=== PATIENT | male | born 1960 | race American Indian/Alaskan Native ===

== ENCOUNTER 2017-02-23 08:48 | Emergency (ER) | payer OTHER ==
--- NOTE | 2017-02-23 09:17 | EDM.PDOC ---
ED HPI GENERAL MEDICAL PROBLEM - General Chief Complaint: Respiratory Problem Stated Complaint: COUGH, PHELM, SICK, X 10 DAYS Time Seen by Provider: 02/23/17 09:16 Source of Information: Reports: Patient History Limitations: Reports: No Limitations - History of Present Illness INITIAL COMMENTS - FREE TEXT/NARRATIVE: 56 yo white male c/o cough and malaise X 1 week. 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 Pt. denies fever or chills Onset Date: 02/19/17 Onset Time: 08:00 Duration: Day(s): Location: Reports: Chest, Generalized Severity: Moderate Improves with: Reports: None Worsens with: Reports: None Associated Symptoms: Reports: cough w sputum (yellow-green), Malaise - Related Data Allergies Allergy/AdvReac Type Severity Reaction Status Date / Time No Known Allergies Allergy Verified 02/23/17 09:09 Home Meds: Home Meds . [No Known Home Meds] 02/23/17 [History] Past Medical History - Past Health History Medical/Surgical History: Denies Medical/Surgical History Social & Family History - Tobacco Use Smoking Status *Q: Never Smoker - Caffeine Use Caffeine Use: Reports: Coffee, Tea - Recreational Drug Use Recreational Drug Use: Yes Recreational Drug Type: Reports: Marijuana/Hashish Other Recreational Drug Type: last time pot was used 3 weeks ago ED ROS GENERAL - Review of Systems Review Of Systems: See Below Constitutional: Reports: Malaise HEENT: Reports: No Symptoms Respiratory: Reports: Cough, Sputum (yellow-green) Cardiovascular: Reports: No Symptoms Endocrine: Reports: Fatigue GI/Abdominal: Reports: Nausea : Reports: No Symptoms Musculoskeletal: Reports: No Symptoms Skin: Reports: No Symptoms Neurological: Reports: No Symptoms Psychiatric: Reports: No Symptoms Hematologic/Lymphatic: Reports: No Symptoms Immunologic: Reports: No Symptoms ED EXAM, GENERAL - Physical Exam Exam: See Below Exam Limited By: No Limitations General Appearance: Alert, WD/WN, Obese Eye Exam: Bilateral Eye: EOMI, PERRL Ears: Normal External Exam Nose: Normal Inspection Throat/Mouth: Normal Inspection Head: Atraumatic, Normocephalic Neck: Normal Inspection, Supple Respiratory/Chest: No Respiratory Distress, Rhonchi (bilateral) Cardiovascular: Normal Peripheral Pulses, Regular Rate, Rhythm GI/Abdominal: Normal Bowel Sounds, Soft, Non-Tender (Male) Exam: No Hernia Back Exam: Normal Inspection, Full Range of Motion Extremities: Normal Inspection, Normal Range of Motion Neurological: Alert, Oriented, CN II-XII Intact Psychiatric: Normal Affect, Normal Mood Skin Exam: Warm, Dry, Intact Lymphatic: No Adenopathy Course - Vital Signs Last Recorded V/S: Last Vital Signs Temp 36.8 C 02/23/17 09:03 Pulse 130 H 02/23/17 09:03 Resp 20 02/23/17 09:03 BP 176/99 H 02/23/17 09:03 Pulse Ox 94 L 02/23/17 09:03 - Orders/Labs/Meds Orders: Active Orders 24 hr Category Date Time Status RT Aerosol Therapy [RC] ASDIRECTED Care 02/23/17 09:56 Ordered CULTURE SPUTUM + SMEAR [RM] Stat Lab 02/23/17 09:56 Uncollected Labs: Laboratory Tests 02/23/17 Range/Units 09:28 WBC 15.4 H (5.0-10.0) 10^3/uL RBC 5.00 (4.6-6.2) 10^6/uL Hgb 15.5 (14.0-18.0) g/dL Hct 45.6 (40.0-54.0) % MCV 91.2 (80-100) fL MCH 31.0 (27.0-34.0) pg MCHC 34.0 (33.0-35.0) g/dL Plt Count 319 (150-450) 10^3/uL Neut % (Auto) 76.4 H (42.2-75.2) % Lymph % (Auto) 10.0 L (20.5-50.1) % [place] % (Auto) 12.4 H (2-8) % Eos % (Auto) 0.9 L (1.0-3.0) % Baso % (Auto) 0.3 (0.0-1.0) % Meds: Medications Discontinued Medications Generic Name Dose Route Start Last Admin Trade Name Freq PRN Reason Stop Dose Admin Albuterol/Ipratropium 3 ml 02/23/17 09:55 Duoneb 3.0-0.5 Mg/3 Ml NEB 02/23/17 09:56 ONETIME ONE Ceftriaxone Sodium 1 gm/ 0 gm 02/23/17 10:09 Lidocaine HCl 2.1 ml IM 02/23/17 10:10 ONETIME ONE Departure - Departure Time of Disposition: 10:12 Disposition: Home, Self-Care 01 Condition: Good Clinical Impression: Pneumonia Qualifiers: Pneumonia type: due to unspecified organism Laterality: left Lung location: lower lobe of lung Qualified Code(s): J18.1 - Lobar pneumonia, unspecified organism - Discharge Information Instructions: Community-Acquired Pneumonia, Adult, [id number] Forms: ED Department Discharge Additional Instructions: Always wear mask when working at [employer] Take the medication as prescribed and complete: ZITHROMAX PACK #1 MUCINEX 600mg BID # 30 COMBIVENT MDI 2 puffs Q 4 hours as needed Increase intake if WATER / JUICE F/U w/ PCP in one week for re-check - My Orders Last 24 Hours: My Active Orders 02/23/17 09:56 RT Aerosol Therapy [RC] ASDIRECTED CULTURE SPUTUM + SMEAR [RM] Stat - Assessment/Plan Last 24 Hours: My Active Orders 02/23/17 09:56 RT Aerosol Therapy [RC] ASDIRECTED CULTURE SPUTUM + SMEAR [RM] Stat
[2017-02-23] MEDS ORDERED: Albuterol/Ipratropium 3.0-0.5 MG/3 ML Neb Soln NEB ONE (09:55)
[2017-02-23] MEDS ORDERED: cefTRIAXone 1 GM, Lidocaine 1% 2.1 ML IM ONE ×2 (10:09)
[2017-02-23 10:59] VITALS: BP 144/96
== END 2017-02-23 10:47 | disposition home or self-care (01) ==
LOC: DL.ED 08:48
DX: J18.9 Pneumonia, unspecified organism (principal)
CPT/HCPCS: 36415; 71020; 85025; 87070; 87205; 94640; 96372; 99283; J0696; 87186

== ENCOUNTER 2019-07-23 12:39 | Emergency (ER) | payer OTHER ==
[2019-07-23 13:04] VITALS: BP 165/98; PULSE 88
[2019-07-23] MEDS ORDERED: Ondansetron 4 MG Tab.DIS PO ONE (13:59)
--- NOTE | 2019-07-23 14:23 | EDM.PDOC ---
Scribed by Batool Russell 07/23/19 1422 for Nelly Palmer NP ED HPI GENERAL MEDICAL PROBLEM - General Chief Complaint: Abdominal Pain Stated Complaint: LOWER ABDOMINAL PAIN Time Seen by Provider: 07/23/19 13:26 Source of Information: Reports: Patient, RN, RN Notes Reviewed History Limitations: Reports: No Limitations - History of Present Illness INITIAL COMMENTS - FREE TEXT/NARRATIVE: A 58-year-old male presents with complaint of abdominal discomfort x1 day. Patient reports eating breakfast one day ago and started having abdominal pain with nausea and vomiting. He reports vomiting just bile. He reports generalized abdominal pain after vomiting. Denies bloody emesis, diarrhea. He smokes marijuana to help relax at night. No abdominal discomfort in the ER, only nausea. - Related Data Allergies Allergy/AdvReac Type Severity Reaction Status Date / Time No Known Allergies Allergy Verified 02/23/17 09:09 Home Meds: Home Meds . [No Known Home Meds] 02/23/17 [History] Past Medical History - Past Health History Medical/Surgical History: Denies Medical/Surgical History HEENT History: Reports: None Cardiovascular History: Reports: None Respiratory History: Reports: None Other Respiratory History: Pneumonia 2019 Neurological History: Reports: None Psychiatric History: Reports: None Endocrine/Metabolic History: Reports: None Hematologic History: Reports: None Immunologic History: Reports: None Oncologic (Cancer) History: Reports: None Dermatologic History: Reports: None - Past Surgical History Head Surgeries/Procedures: Reports: None HEENT Surgical History: Reports: None Cardiovascular Surgical History: Reports: None GI Surgical History: Reports: None Endocrine Surgical History: Reports: None Musculoskeletal Surgical History: Reports: None Social & Family History - Tobacco Use Smoking Status *Q: Never Smoker Second Hand Smoke Exposure: No - Caffeine Use Caffeine Use: Reports: Tea - Recreational Drug Use Recreational Drug Use: Yes Drug Use in Last 12 Months: Yes Recreational Drug Type: Reports: Marijuana/Hashish Recreational Drug Use Frequency: Daily ED ROS GENERAL - Review of Systems Review Of Systems: Comprehensive ROS is negative, except as noted in HPI. ED EXAM, GI/ABD - Physical Exam Exam: See Below Exam Limited By: No Limitations General Appearance: Alert, WD/WN, No Apparent Distress Head: Atraumatic, Normocephalic Neck: Normal Inspection, Supple, Non-Tender, Full Range of Motion Respiratory/Chest: No Respiratory Distress, Lungs Clear, Normal Breath Sounds, No Accessory Muscle Use, Chest Non-Tender Cardiovascular: Normal Peripheral Pulses, Regular Rate, Rhythm, No Edema, No Gallop, No JVD, No Murmur, No Rub GI/Abdominal Exam: Normal Bowel Sounds, Soft, Non-Tender, No Organomegaly, No Distention, No Abnormal Bruit, No Mass, Pelvis Stable (Male) Exam: Deferred Rectal (Males) Exam: Deferred Back Exam: Normal Inspection, Full Range of Motion, NT Extremities: Normal Inspection, Normal Range of Motion, Non-Tender, Normal Capillary Refill, No Pedal Edema Neurological: Alert, Oriented, CN II-XII Intact, Normal Cognition, Normal Gait, Normal Reflexes, No Motor/Sensory Deficits Psychiatric: Normal Affect, Normal Mood Skin Exam: Warm, Dry, Intact, Normal Color, No Rash Lymphatic: No Adenopathy Course - Vital Signs Last Recorded V/S: Last Vital Signs Temp 97.4 F 07/23/19 12:52 Pulse 88 07/23/19 12:52 Resp 18 07/23/19 12:52 BP 165/98 H 07/23/19 12:52 Pulse Ox 97 07/23/19 12:52 - Orders/Labs/Meds Meds: Medications Discontinued Medications Generic Name Dose Route Start Last Admin Trade Name Saira PRN Reason Stop Dose Admin Ondansetron HCl 4 mg 07/23/19 13:59 07/23/19 14:03 Zofran Odt PO 07/23/19 14:00 4 mg ONETIME ONE Administration - Re-Assessments/Exams Free Text/Narrative Re-Assessment/Exam: 07/23/19 14:17 Reviewed exam findings with patient. Zofran ODT prescribed. Strongly encouraged to discontinue marijuana. Advised food as tolerated. Follow up with PCP in clinic. Departure - Departure Time of Disposition: 13:49 Disposition: Home, Self-Care 01 Condition: Good Clinical Impression: Nausea, Marijuana smoker - Discharge Information Instructions: Nausea, Adult, [id number] Forms: ED Department Discharge Additional Instructions: RX: Zofran 4mg. Push fluids, advance diet as tolerated. Follow up in PCP in 2 to 3 days. Sepsis Event Note - Evaluation Sepsis Screening Result: No Definite Risk - Focused Exam Vital Signs: Vital Signs Temp Pulse Resp BP Pulse Ox 07/23/19 12:52 97.4 F 88 18 165/98 H 97 Date Exam was Performed: 07/23/19 Time Exam was Performed: 14:21 I have read and agree with the documentation that has been completed regarding this visit. By signing this record, I attest that the documentation was completed in my physical presence and is an accurate record of the encounter.
== END 2019-07-23 14:20 | disposition home or self-care (01) ==
LOC: DL.ED 12:39
DX: R11.2 Nausea with vomiting, unspecified (principal); F12.90 Cannabis use, unspecified, uncomplicated
CPT/HCPCS: 99284; A9270; 99283

== ENCOUNTER 2020-07-05 11:38 | Emergency (ER) | payer OTHER ==
[2020-07-05 11:53] VITALS: BP 206/98; PULSE 101
--- NOTE | 2020-07-05 12:21 | EDM.PDOC ---
ED HPI GENERAL MEDICAL PROBLEM - General Chief Complaint: Abdominal Pain Stated Complaint: LEFT ABDOMINAL PAIN, CRAMPING Time Seen by Provider: 07/05/20 12:00 Source of Information: Reports: Patient History Limitations: Reports: No Limitations - History of Present Illness INITIAL COMMENTS - FREE TEXT/NARRATIVE: This 59 yo male patient reports to the ED due to left upper abdominal tenderness/left lower chest pain. The patient reports his symptoms have been intermittent over the past couple of days. The patient has not been able to associate his symptoms with eating or drinking anything. The patient reports he has taken Tylenol and ibuprofen with some symptomatic relief. Duration: Day(s):, Intermittent Location: Reports: Chest (left lower), Abdomen (left upper) Quality: Reports: Ache, Dull Severity: Moderate Improves with: Reports: None Worsens with: Reports: None Context: Reports: Other Associated Symptoms: Reports: No Other Symptoms - Related Data Allergies Allergy/AdvReac Type Severity Reaction Status Date / Time No Known Allergies Allergy Verified 07/05/20 11:54 Home Meds: Home Meds . [No Known Home Meds] 02/23/17 [History] Past Medical History - Past Health History Medical/Surgical History: Denies Medical/Surgical History HEENT History: Reports: None Cardiovascular History: Reports: None Respiratory History: Reports: None Other Respiratory History: Pneumonia 2019 Neurological History: Reports: None Psychiatric History: Reports: None Endocrine/Metabolic History: Reports: None Hematologic History: Reports: None Immunologic History: Reports: None Oncologic (Cancer) History: Reports: None Dermatologic History: Reports: None - Past Surgical History Head Surgeries/Procedures: Reports: None HEENT Surgical History: Reports: None Cardiovascular Surgical History: Reports: None GI Surgical History: Reports: None Endocrine Surgical History: Reports: None Musculoskeletal Surgical History: Reports: None Social & Family History - Tobacco Use Tobacco Use Status *Q: Never Tobacco User Second Hand Smoke Exposure: No - Caffeine Use Caffeine Use: Reports: None - Recreational Drug Use Recreational Drug Use: Yes Recreational Drug Type: Reports: Marijuana/Hashish ED ROS GENERAL - Review of Systems Review Of Systems: Comprehensive ROS is negative, except as noted in HPI. ED EXAM, GI/ABD - Physical Exam Exam: See Below Exam Limited By: No Limitations General Appearance: Alert, WD/WN, Mild Distress, Obese Eyes: Bilateral: Normal Appearance, EOMI Ears: Normal External Exam, Normal Canal, Hearing Grossly Normal, Normal TMs Nose: Normal Inspection, Normal Mucosa, No Blood Throat/Mouth: Normal Inspection, Normal Lips, Normal Teeth, Normal Gums, Normal Oropharynx, Normal Voice, No Airway Compromise Head: Atraumatic, Normocephalic Neck: Normal Inspection, Supple, Non-Tender, Full Range of Motion Respiratory/Chest: No Respiratory Distress, Lungs Clear, Normal Breath Sounds, No Accessory Muscle Use, Chest Non-Tender Cardiovascular: Normal Peripheral Pulses, Regular Rate, Rhythm, No Edema, No G allop, No JVD, No Murmur, No Rub GI/Abdominal Exam: Normal Bowel Sounds, Soft, Non-Tender, No Organomegaly, No Distention, No Abnormal Bruit, No Mass, Pelvis Stable (Male) Exam: Deferred Rectal (Males) Exam: Deferred Back Exam: Normal Inspection, Full Range of Motion, NT Extremities: Normal Inspection, Normal Range of Motion, Non-Tender, Normal Capillary Refill, No Pedal Edema Neurological: Alert, Oriented, CN II-XII Intact, Normal Cognition, Normal Gait, Normal Reflexes, No Motor/Sensory Deficits Psychiatric: Normal Affect, Normal Mood Skin Exam: Warm, Dry, Intact, Normal Color, No Rash Lymphatic: No Adenopathy Course - Vital Signs Last Recorded V/S: Last Vital Signs Temp 36.1 C 07/05/20 11:51 Pulse 101 H 07/05/20 11:51 Resp 22 H 07/05/20 11:51 BP 206/98 H 07/05/20 11:51 Pulse Ox 95 07/05/20 11:51 - Orders/Labs/Meds Orders: Active Orders 24 hr Category Date Time Status EKG Documentation Completion [RC] STAT Care 07/05/20 11:47 Active CULTURE BLOOD [BC] Stat Lab 07/05/20 12:01 Received Labs: Laboratory Tests 07/05/20 07/05/20 07/05/20 Range/Units 12:01 12:01 12:01 WBC 8.5 (5.0-10.0) 10^3/uL RBC 5.07 (4.6-6.2) 10^6/uL Hgb 15.6 (14.0-18.0) g/dL Hct 45.0 (40.0-54.0) % MCV 88.8 (80-100) fL MCH 30.8 (27.0-34.0) pg MCHC 34.7 (33.0-35.0) g/dL Plt Count 210 D (150-450) 10^3/uL Neut % (Auto) 68.8 (42.2-75.2) % Lymph % (Auto) 19.2 L (20.5-50.1) % [place] % (Auto) 10.4 H (2-8) % Eos % (Auto) 1.1 (1.0-3.0) % Baso % (Auto) 0.5 (0.0-1.0) % Sodium 136 (136-145) mmol/L Potassium 4.1 (3.5-5.1) mmol/L Chloride 100 (98-107) mmol/L Carbon Dioxide 23 (21-32) mmol/L Anion Gap 17.1 H (7-13) mEq/L BUN 14 (7-18) mg/dL Creatinine 1.15 (0.70-1.30) mg/dL Est Cr Clr Drug Dosing 67.46 mL/min Estimated GFR (MDRD) > 60 BUN/Creatinine Ratio 12.2 (No establ ref range) Glucose 258 H (74-99) mg/dL Lactic Acid 1.3 (0.4-2.0) mmol/L Calcium 9.5 (8.5-10.1) mg/dL Total Bilirubin 0.8 (0.2-1.0) mg/dL AST 31 (15-37) U/L ALT 57 (16-63) U/L Alkaline Phosphatase 103 (46-116) U/L Troponin I < 0.017 (0.000-0.056) ng/mL Total Protein 8.3 H (6.4-8.2) g/dL Albumin 4.2 (3.4-5.0) g/dL Globulin 4.1 Albumin/Globulin Ratio 1.0 Urine Color (YELLOW) Urine Appearance (CLEAR) Urine pH (5.0-9.0) Ur Specific [place] (1.005-1.030) Urine Protein (NEGATIVE) Urine Glucose (UA) (NEGATIVE) Urine Ketones (NEGATIVE) Urine Occult Blood (NEGATIVE) Urine Nitrite (NEGATIVE) Urine Bilirubin (NEGATIVE) Urine Urobilinogen (0.2-1.0) mg/dL Ur Leukocyte Esterase (NEGATIVE) Urine RBC /HPF Urine WBC (0-5/HPF) /HPF Ur Epithelial Cells (NOT SEEN) /HPF Urine Bacteria (0-FEW/HPF) /HPF Urine Mucus (NOT SEEN) /LPF SARS-CoV-2 RNA (JUAN) (NEGATIVE) 07/05/20 07/05/20 Range/Units 12:47 12:47 WBC (5.0-10.0) 10^3/uL RBC (4.6-6.2) 10^6/uL Hgb (14.0-18.0) g/dL Hct (40.0-54.0) % MCV (80-100) fL MCH (27.0-34.0) pg MCHC (33.0-35.0) g/dL Plt Count (150-450) 10^3/uL Neut % (Auto) (42.2-75.2) % Lymph % (Auto) (20.5-50.1) % [place] % (Auto) (2-8) % Eos % (Auto) (1.0-3.0) % Baso % (Auto) (0.0-1.0) % Sodium (136-145) mmol/L Potassium (3.5-5.1) mmol/L Chloride (98-107) mmol/L Carbon Dioxide (21-32) mmol/L Anion Gap (7-13) mEq/L BUN (7-18) mg/dL Creatinine (0.70-1.30) mg/dL Est Cr Clr Drug Dosing mL/min Estimated GFR (MDRD) BUN/Creatinine Ratio (No establ ref range) Glucose (74-99) mg/dL Lactic Acid (0.4-2.0) mmol/L Calcium (8.5-10.1) mg/dL Total Bilirubin (0.2-1.0) mg/dL AST (15-37) U/L ALT (16-63) U/L Alkaline Phosphatase (46-116) U/L Troponin I (0.000-0.056) ng/mL Total Protein (6.4-8.2) g/dL Albumin (3.4-5.0) g/dL Globulin Albumin/Globulin Ratio Urine Color Dark yellow (YELLOW) Urine Appearance Clear (CLEAR) Urine pH 6.0 (5.0-9.0) Ur Specific [place] 1.025 (1.005-1.030) Urine Protein 30 H (NEGATIVE) Urine Glucose (UA) 500 H (NEGATIVE) Urine Ketones Trace H (NEGATIVE) Urine Occult Blood Negative (NEGATIVE) Urine Nitrite Negative (NEGATIVE) Urine Bilirubin Negative (NEGATIVE) Urine Urobilinogen 0.2 (0.2-1.0) mg/dL Ur Leukocyte Esterase Negative (NEGATIVE) Urine RBC Not seen /HPF Urine WBC Not seen (0-5/HPF) /HPF Ur Epithelial Cells Rare (NOT SEEN) /HPF Urine Bacteria Not seen (0-FEW/HPF) /HPF Urine Mucus Few H (NOT SEEN) /LPF SARS-CoV-2 RNA (JUAN) Negative (NEGATIVE) Departure - Departure Time of Disposition: 13:26 Disposition: Home, Self-Care 01 Condition: Fair Clinical Impression: Hyperglycemia Hypertension Qualifiers: Hypertension type: unspecified Qualified Code(s): I10 - Essential (primary) hypertension Muscle strain of chest wall Qualifiers: Encounter type: initial encounter Qualified Code(s): S29.011A - Strain of muscle and tendon of front wall of thorax, initial encounter - Discharge Information *PRESCRIPTION DRUG MONITORING PROGRAM REVIEWED*: Not Applicable *COPY OF PRESCRIPTION DRUG MONITORING REPORT IN PATIENT JOON: Not Applicable Instructions: Muscle Strain, [id number], Hyperglycemia, [id number]-[id number], Hypertension, Adult, [id number] Forms: ED Department Discharge Care Plan Goals: The patient was advised of the examination, lab, x-ray and EKG results during the visit. The patient was encouraged to follow-up with a primary care facility for further evaluation and treatment. If the patient has any additional symptoms or concerns, the patient should either return to the emergency department or visit his primary care facility. Sepsis Event Note (ED) - Evaluation Sepsis Screening Result: No Definite Risk - Focused Exam Vital Signs: Vital Signs Temp Pulse Resp BP Pulse Ox 07/05/20 11:51 36.1 C 101 H 22 H 206/98 H 95 - My Orders Last 24 Hours: My Active Orders 07/05/20 11:47 EKG Documentation Completion [RC] STAT 07/05/20 12:01 CULTURE BLOOD [BC] Stat - Assessment/Plan Last 24 Hours: My Active Orders 07/05/20 11:47 EKG Documentation Completion [RC] STAT 07/05/20 12:01 CULTURE BLOOD [BC] Stat
[2020-07-05 12:38] LABS: ANION GAP 17.1 mEq/L (7-13); CHLORIDE,CL 100 mmol/L (98-107); SODIUM,NA 136 mmol/L (136-145)
--- NOTE | 2020-07-05 13:08 | CR ---
EXAMINATION: Chest 1V Frontal SEX: Male AGE: 59 years CLINICAL HISTORY: 59-year-old male complaining of left sided chest pain (emergency department). INTERPRETATION: No acute new cardiopulmonary abnormality since 23 February 2017 comparison. 1. Normal cardiac silhouette (size and configuration). External therapeutic mentor leads. 2. No pulmonary vascular congestion, cephalization of flow, alveolar edema or dependent pleural fluid accumulation (effusion). 3. No new lung mass, hilar lymphadenopathy or focal lobar alveolar consolidation. No air bronchograms and no sign of peripheral "groundglass" interstitial lung densities. 4. AP view bony thorax unremarkable. 5. No pneumothorax or pneumomediastinum. No free subdiaphragmatic air. Note: Complete resolution of previously demonstrated (2016) "left lower lobe pneumonia".
== END 2020-07-05 13:35 | disposition home or self-care (01) ==
LOC: DL.ED 11:38
DX: S29.011A Strain of muscle and tendon of front wall of thorax, initial encounter (principal); I10 Essential (primary) hypertension; R73.9 Hyperglycemia, unspecified; Z20.822 Contact with and (suspected) exposure to COVID-19; X58.XXXA Exposure to other specified factors, initial encounter
CPT/HCPCS: 36415; 71045; 80053; 81001; 83605; 84484; 85025; 87040; 99283; 99285-25; U0002

== ENCOUNTER 2021-05-03 09:16 | Emergency (ER) | payer OTHER ==
[2021-05-03] MEDS ORDERED: HYDROmorphone 1 MG/ML Syringe IVPUSH ONE ×2 (09:29→11:50)
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
[2021-05-03 09:34] VITALS: BP 129/80; PULSE 130
[2021-05-03] MEDS ORDERED: Sodium Chloride 0.9% 1,000 ML IV ONE ×2 (09:44→11:33)
[2021-05-03] MEDS ORDERED: GI Cocktail Oral Solution 30 ML PO ONE (09:48)
[2021-05-03] MEDS ORDERED: fentaNYL 100 MCG/2 ML SDV IVPUSH ONE (10:23)
[2021-05-03 10:40] LABS: ANION GAP 27.1 mEq/L (7-13)
[2021-05-03 10:41] LABS: HEMOGLOBIN A1C 11.9 % (<5.7)
[2021-05-03] MEDS ORDERED: Sodium Bicarbonate 8.4% 50 MEQ/50 ML Syringe IVPUSH ONE (10:56)
[2021-05-03] MEDS ORDERED: Glucagon,Human Recombinant 1 MG Vial IM PRN (10:58)
[2021-05-03] MEDS ORDERED: 50% Dextrose in Water 50 ML Syringe IVPUSH PRN (10:58)
[2021-05-03] MEDS ORDERED: Insulin Regular, Human 100 Units/ML 3 ML Vial IV ONE (10:58)
[2021-05-03 11:17] LABS: BASE EXCESS ARTERIAL -14 mmol/L ((-2)-(+3)); BICARBONATE,ARTERIAL 9.6 mmol/L (22-26); O2 DELIVERY DEVICE ROOM AIR; O2 SATURATION ARTERIAL 94 % (95-100); PO2 ARTERIAL 77 mmHg (70-100)
[2021-05-03 11:19] LABS: PCO2 ARTERIAL 19 mmHg (35-45)
[2021-05-03] MEDS ORDERED: Piperacillin/Tazobactam 3.375 GM in Sodium Chloride 0.9% 100 ML IV ONE (11:33)
[2021-05-03] MEDS ORDERED: Sodium Bicarbonate 100 MEQ in Dextrose 5% in Water 1,000 ML IV ONE ×2 (11:47)
--- NOTE | 2021-05-03 11:52 | CT ---
PROCEDURE INFORMATION: Exam: CT Chest Without Contrast; Diagnostic Exam date and time: 05/03/2021 11:00 AM Age: 60 years old Clinical indication: Other: Ruq pain; Wbc 23, lactic acid 9 TECHNIQUE: Imaging protocol: Diagnostic computed tomography of the chest without contrast. Radiation optimization: All CT scans at this facility use at least one of these dose optimization techniques: automated exposure control; mA and/or kV adjustment per patient size (includes targeted exams where dose is matched to clinical indication); or iterative reconstruction. COMPARISON: CR Chest 2V 02/23/2017 9:28 AM FINDINGS: Trachea: The trachea is normal. Bronchial tree: The bronchial tree is normal. Lungs: The lungs are normal. Pleural spaces: There are no pleural effusions visualized. Heart: The heart is not enlarged. Aorta: The aorta is normal. Lymph nodes: No pathologic lymph node enlargement is demonstrated. Bones/joints: There is a fracture of the upper 3rd of the body of the sternum. The age of this is indeterminate and correlation with point tenderness is suggested. Soft tissues: The extrathoracic soft tissues are normal. IMPRESSION: Fracture of the body of the sternum of indeterminate age. PROCEDURE INFORMATION: Exam: CT Abdomen And Pelvis Without Contrast Exam date and time: 05/03/2021 11:00 AM Age: 60 years old Clinical indication: Other: Ruq pain; Wbc 23, lactic acid 9 TECHNIQUE: Imaging protocol: Computed tomography of the abdomen and pelvis without contrast. Radiation optimization: All CT scans at this facility use at least one of these dose optimization techniques: automated exposure control; mA and/or kV adjustment per patient size (includes targeted exams where dose is matched to clinical indication); or iterative reconstruction. COMPARISON: CR Chest 2V 02/23/2017 9:28 AM FINDINGS: Liver: The liver is normal. Gallbladder and bile ducts: The gallbladder is normal. Pancreas: The pancreas is normal. Spleen: The spleen is normal. Adrenal glands: The adrenal glands are normal. Kidneys and ureters: The ureters are normal. The kidneys are normal. Stomach and bowel: The stomach is normal. No over distention of bowel loops is seen. Appendix: The appendix is visualized and is not dilated or edematous. Intraperitoneal space: Intraperitoneal free air is scattered in the abdomen. There is extraluminal air adjacent to the 1/2 portion of the duodenum. There is intraperitoneal free fluid in the right lower quadrant near the cecum. There is a small amount of free pelvic fluid present. Vasculature: The aorta is normal. Lymph nodes: No pathologic lymph node enlargement is demonstrated. Urinary bladder: The bladder is normal. Reproductive: The prostate and seminal vesicles are normal. Bones/joints: Unremarkable Soft tissues: The extra-abdominal soft tissues are normal. IMPRESSION: 1. There is air within the peritoneal space in there is air in the tissues adjacent to the 1 and 2 portion of the duodenum. The possibility of a perforating ulcer might be considered. 2. There is ascites in the pelvis on the right near the cecum and in the cul-de-sac.
== END 2021-05-03 13:05 ==
LOC: DL.ED 09:16
DX: S22.22XA Fracture of body of sternum, initial encounter for closed fracture (principal); E11.10 Type 2 diabetes mellitus with ketoacidosis without coma; R18.8 Other ascites; Z20.822 Contact with and (suspected) exposure to COVID-19; W55.22XA Struck by cow, initial encounter
CPT/HCPCS: 36415; 36600; 71250; 74176; 80053; 82009; 82150; 82803; 82947; 83036; 83605; 83690; 83735; 83880; 84484; 85025; 86140; 87635; 93005; 96365; 96367; 96375; 96376; 99285; A9270; J1170; J1815; J2543; J3010; J7030; J7060; U0002